=== PATIENT | female | born 1995 | race Caucasian/White ===

== ENCOUNTER 2016-12-31 10:00 | Emergency (ER) | payer MEDICAID ==
[2016-12-31 10:01] VITALS: BMI 29.0
[2016-12-31] MEDS ORDERED: Sodium Chloride 0.9% 1,000 ML IV ONE (10:55)
[2016-12-31] MEDS ORDERED: Sodium Chloride 0.9% 1,000 ML ONE ×2 (11:06→12:09)
[2016-12-31 11:45] LABS: RBC URINE 2 /hpf (0-3); URINE BACTERIA RARE (<OCC); URINE BILIRUBIN NEGATIVE (NEGATIVE); URINE BLOOD NEGATIVE (NEGATIVE); URINE COLOR Yellow (YELLOW); URINE GLUCOSE (UA) NORMAL (Normal); URINE KETONE NEGATIVE (NEGATIVE); URINE LEUKOCYTE ESTERASE 2+ Leu/uL (Negative); URINE PROTEIN NEGATIVE (NEGATIVE); URINE UROBILINOGEN NORMAL mg/dL (0.2-1.0); WBC URINE 13 /hpf (0-5)
--- NOTE | 2016-12-31 12:07 | C.PDOC ---
History Of Present Illness 21 year old female, with estimated twin gestational age of 10 weeks, presents to the ED for evaluation of lower abdominal and pelvic pressure which began around 1 week ago. Patient states her symptoms are intermittent and radiate towards her back. Patient reports feeling like something was "pushing" when she last used the bathroom. Patient denies nausea, vomiting, vaginal bleeding, dysuria. Patient is P1; Patient had a miscarriage in March 2016 at gestational age of 22 weeks. Patient's last menstrual period was 10/21 RAILROAD COMMISSIONER: Dr. Babcock Time Seen by Provider: 12/31/16 10:35 Chief Complaint (Nursing): Abdominal Pain History Per: Patient History/Exam Limitations: no limitations Onset/Duration Of Symptoms: Days (1 week), Intermittent Episodes Current Symptoms Are (Timing): Still Present Location Of Pain/Discomfort: Other (lower abdominal ) Radiation Of Pain To:: Back Quality Of Discomfort: "Pain" Associated Symptoms: denies: Fever, Chills, Nausea, Vomiting Additional History Per: Patient Abnormal Vaginal Bleeding: No Past Medical History Reviewed: Historical Data, Nursing Documentation, Vital Signs Vital Signs: Last Vital Signs Temp 98.4 F 12/31/16 13:29 Pulse 74 12/31/16 13:29 Resp 16 12/31/16 13:29 BP 124/74 12/31/16 13:29 Pulse Ox 99 12/31/16 18:51 - Medical History PMH: No Chronic Diseases Surgical History: No Surg Hx - [facility] Procedures OF POC, ABORTIFACIENT, VIA OPENING (03/26/16) Family History: States: Unknown Family Hx - Social History Hx Alcohol Use: No Hx Substance Use: No - Immunization History Hx Tetanus Toxoid Vaccination: No Hx Influenza Vaccination: No Hx Pneumococcal Vaccination: No Review Of Systems Constitutional: Negative for: Fever, Chills Gastrointestinal: Positive for: Abdominal Pain (lower abdomen ). Negative for: Nausea, Vomiting Genitourinary: Negative for: Dysuria, Vaginal Bleeding Musculoskeletal: Positive for: Back Pain Physical Exam - Physical Exam Appears: Non-toxic, No Acute Distress Skin: Normal Color, Warm, Dry Eye(s): bilateral: Normal Inspection Oral Mucosa: Moist Neck: Supple Chest: Symmetrical, No Deformity Cardiovascular: Rhythm Regular, No Murmur Respiratory: Normal Breath Sounds, No Rales, No Rhonchi, No Wheezing Gastrointestinal/Abdominal: Tenderness (suprapubic ), No Guarding, No Rebound Back: Normal Inspection, No Vertebral Tenderness, No Paraspinal Tenderness Extremity: Normal ROM, Capillary Refill (less than 2 seconds ) Neurological/Psych: Oriented x3, Normal Speech, Normal Cognition ED Course And Treatment - Laboratory Results Result Diagrams: 12/31/16 12:23 12/31/16 12:23 O2 Sat by Pulse Oximetry: 99 (on RA) Pulse Ox Interpretation: Normal - CT Scan/US Obstetrics US Other Rad Studies (CT/US): Interpreted By Me, Read By Radiologist, Radiology Report Reviewed CT/US Interpretation: Indication: pelvic pain, preg with twins 10 wk. Comparison: Pelvic ultrasound performed 09/15/15. Technique: Both transabdominal and endovaginal imaging was performed. Findings: This is a twin gestation. Fetus A: The gestational sac measures 7.3 cm. The crown-rump length measures 4.9 cm, and is compatible with a gestational age of 11 weeks 5 days. There is heart motion which measured 146.3 BPM. Fetus B: The gestational sac measures 7.3cm. The crown-rump length measures 4.4 cm, and is compatible with a gestational age of 11 weeks 1 day. There is heart motion which measured 158.8 BPM. The right ovary measures 4.7 x 3.8 x 3.6 cm and contains 2.0 x 1.6 x 2.5 cm cyst. Blood flow is demonstrated to the right ovary. The left ovary is not visualized. Cervix length measures approximately 4 cm. Impression: Twin gestation. Fetus A: The crown-rump length measures 4.9 cm, and is compatible with a gestational age of 11 weeks 5 days. There is heart motion which measured 146.3 BPM. Fetus B: . The crown-rump length measures 4.4 cm, and is compatible with a gestational age of 11 weeks 1 day. There is heart motion which measured 158.8 BPM. Advise an anomaly screen at 16-18 weeks gestational age. 2.5 cm right ovarian cyst. The left ovary is not visualized. Medical Decision Making Medical Decision Making: Impression: 21 year old female with lower abdominal pain Plan: * labs * Transvaginal US * Tylenol PO * IV Fluids * reassess and disposition Progress: labs and US ordered and reviewed. Patient received Tylenol PO and IV Fluids. On reassessment, patient is resting comfortably, showing no signs of distress and is stable for discharge. Will treat for UTI. Patient is advised to follow up with her RAILROAD COMMISSIONER within 1-2 days for further evaluation. Disposition Counseled Patient/Family Regarding: Diagnosis, Need For Followup - Disposition Referrals: Raz Babcock MD [Staff Provider] - Disposition: HOME/ ROUTINE Disposition Time: 13:08 Condition: GOOD Additional Instructions: Es importante que usted siga con ob / dried yeast supervisor Dr Babcock en pocos mack [place] el antibitico dos veces al da para la infeccin de la orina Prescriptions: Nitrofurantoin Macrocrystals [Macrobid] 1 cap PO BID #14 cap Instructions: Threatened Miscarriage (ED), Urinary Tract Infection in (ED) Forms: [employer] (Swazi) Print Language: BELGIAN - POA Present On Arrival: None - Clinical Impression Clinical Impression: UTI in , Threatened miscarriage - PA / KENNEL ATTENDANT / Resident Statement MD/DO has reviewed & agrees with the documentation as recorded. - Scribe Statement The provider has reviewed the documentation as recorded by the Scribe (Kaelyn Iglesias) All medical record entries made by the Scribe were at my direction and personally dictated by me. I have reviewed the chart and agree that the record accurately reflects my personal performance of the history, physical exam, medical decision making, and the department course for this patient. I have also personally directed, reviewed, and agree with the discharge instructions and disposition.
[2016-12-31 12:28] LABS: BASO % 0.3 % (0.0-2.0); EOS % 0.7 % (0.0-4.0); HEMATOCRIT 33.7 % (34.0-47.0); LYMPH # 1.6 K/uL (1.0-4.3); LYMPH % 23.8 % (20.0-40.0); MEAN CELL VOLUME 87.6 fL (81.0-99.0); MEAN CORPUSCULAR HEMOGLOBIN 30.6 pg (27.0-31.0); MEAN PLATELET VOLUME 9.3 fL (7.2-11.7); MONO % 5.9 % (0.0-10.0); RED CELL DISTRIBUTION WIDTH 12.2 % (11.5-14.5); WHITE BLOOD COUNT 6.6 K/uL (4.8-10.8)
[2016-12-31 12:29] LABS: MONO # 0.4 K/uL (0.0-0.8)
[2016-12-31 12:41] LABS: CHLORIDE 102 mmol/L (98-107); SODIUM 137 mmol/L (132-148)
[2016-12-31 12:42] LABS: POTASSIUM 3.9 mmol/L (3.6-5.2)
[2016-12-31 12:44] LABS: ALB/GLOB RATIO 1.2 (1.0-2.1); ALKALINE PHOSPHATASE 62 U/L (38-126); AST/SGOT 25 U/L (14-36); BILIRUBIN,TOTAL 0.3 mg/dL (0.2-1.3); BLOOD UREA NITROGEN 3 mg/dL (7-17); CARBON DIOXIDE 22 mmol/L (22-30); GFR AFRICAN-AMERICAN > 60; GLUCOSE,RANDOM 67 mg/dL (65-105); TOTAL PROTEIN 6.8 g/dL (6.3-8.3)
[2016-12-31 12:45] LABS: ALT/SGPT 45 U/L (9-52); CALCIUM 9.4 mg/dl (8.6-10.4)
--- NOTE | 2016-12-31 12:47 | US ---
Indication: pelvic pain, preg with twins 10 wk Comparison: Pelvic ultrasound performed 09/15/15 Technique: Both transabdominal and endovaginal imaging was performed. Findings: This is a twin gestation. Fetus A: The gestational sac measures 7.3 cm. The crown-rump length measures 4.9 cm, and is compatible with a gestational age of 11 weeks 5 days. There is heart motion which measured 146.3 BPM. Fetus B: The gestational sac measures 7.3cm. The crown-rump length measures 4.4 cm, and is compatible with a gestational age of 11 weeks 1 day. There is heart motion which measured 158.8 BPM. The right ovary measures 4.7 x 3.8 x 3.6 cm and contains 2.0 x 1.6 x 2.5 cm cyst. Blood flow is demonstrated to the right ovary. The left ovary is not visualized. Cervix length measures approximately 4 cm. Impression: Twin gestation. Fetus A: The crown-rump length measures 4.9 cm, and is compatible with a gestational age of 11 weeks 5 days. There is heart motion which measured 146.3 BPM. Fetus B: . The crown-rump length measures 4.4 cm, and is compatible with a gestational age of 11 weeks 1 day. There is heart motion which measured 158.8 BPM. Advise an anomaly screen at 16-18 weeks gestational age. 2.5 cm right ovarian cyst. The left ovary is not visualized.
[2016-12-31 13:32] VITALS: BP 124/74; PULSE 74; RESP 16; TEMP 98.4
[2016-12-31 18:41] VITALS: O2SAT 99
== END 2016-12-31 13:33 | disposition home or self-care (01) ==
LOC: C.ER 10:00
DX: O20.0 Threatened abortion (principal); O23.41 Unspecified infection of urinary tract in pregnancy, first trimester; Z3A.11 11 weeks gestation of pregnancy
CPT/HCPCS: 76801; 80053; 81001; 84702; 84703; 85025; 96360; 99284; J7040

== ENCOUNTER 2018-05-25 11:40 | Emergency (ER) | payer OTHER ==
[2018-05-25] MEDS ORDERED: Lactated Ringer's 1,000 ML IV ONE (13:23)
[2018-05-25 13:26] LABS: SQUAMOUS EPITHIAL 2 /hpf (0-5); URINE BACTERIA RARE (<OCC); URINE BILIRUBIN NEGATIVE (NEGATIVE); URINE BLOOD NEGATIVE (NEGATIVE); URINE CLARITY Hazy (Clear); URINE COLOR Straw (YELLOW); URINE GLUCOSE (UA) NORMAL (Normal); URINE LEUKOCYTE ESTERASE NEG Leu/uL (Negative); URINE PROTEIN NEGATIVE (NEGATIVE); URINE UROBILINOGEN NORMAL mg/dL (0.2-1.0)
[2018-05-25 13:44] LABS: BASO % 0.3 % (0.0-2.0); EOS % 0.8 % (0.0-4.0); HEMOGLOBIN 11.1 g/dL (11.0-16.0); LYMPH # 1.4 K/uL (1.0-4.3); LYMPH % 23.1 % (20.0-40.0); MEAN CORPUSCULAR HEMOGLOBIN 29.6 pg (27.0-31.0); MEAN CORPUSCULAR HGB CONC 33.1 g/dL (33.0-37.0); MEAN PLATELET VOLUME 10.4 fL (7.2-11.7); MONO # 0.4 K/uL (0.0-0.8); MONO % 6.5 % (0.0-10.0); NEUT # 4.2 K/uL (1.8-7.0); NEUT % 69.3 % (50.0-75.0); RBC 3.76 Mil/uL (3.80-5.20); RED CELL DISTRIBUTION WIDTH 14.3 % (11.5-14.5)
[2018-05-25 13:47] LABS: MEAN CELL VOLUME 89.3 fL (81.0-99.0)
[2018-05-25 13:59] LABS: ALB/GLOB RATIO 1.1 (1.0-2.1); ALBUMIN 3.6 g/dL (3.5-5.0); ALT/SGPT 12 U/L (9-52); AST/SGOT 20 U/L (14-36); BLOOD UREA NITROGEN 4 mg/dL (7-17); CALCIUM 8.9 mg/dl (8.6-10.4); GFR NON-AFRICAN AMERICAN > 60
--- NOTE | 2018-05-25 14:30 | OBHP ---
Datetime: 05/25/2018 12:31 IP Adm Impression: , intrauterine ; No Active Labor; Intact Membranes IP Chief Complaint Other: internal vaginal pressure 2/2 cramping IP Admit Plan: Observation/Evaluation Admit Comment, IP Provider: Subjective: Patient is a 22 year old female at 30 weeks and 5 days gestation presenting with complaint s of intermittent lower abdominal pain. Patient reports suprapubic cramping associated with internal vaginal pressure. She currently rates that pain at a 6-8/10. She reports an isolated episode of liqui d dripping down her thigh after using the bathroom last night. She states that she has continued to f eel movement. Patient denies vaginal bleeding or discharge, gush of fluid, dysuria. Patient den ies blurry vision, shortness of breath, chest pain, nausea, vomiting, diarrhea, constipation. OBGYN Hx: ; 1st term vaginal 2007, 2nd term vaginal 2014, Stillbirth at 23 weeks 2016, Twins (for tachycardia) at 34 weeks 2018. [facility]age [facility] twins . [facility]. Social Hx: Denies tobacco, alcohol, illicit drug use. Medical Hx: Anemia of (2018) Allergies: NKA Surgical Hx: (2017) Hospitilizations: Denies except for OBstetrics Family Hx: DM in mother. Medications: PNV, Ferrous Sulfate, Vitamin C Objective: VS- Reviewed PE- please see physical exam comments. NST reactive but mild tachycardia No uterine contractions recorded or palpated Assessment: 1. 22 y.o F at 30 weeks 5 days gestation 2. r/o UTI / R/O Dehydration 3. r/o labor 4. r/o rupture of membranes 5. Tachycardia 6. Hx of Anemia Plan: - UA Sent as well as CBC, CMP - Not in labor, continue monitoring with CEFM and TOCO - Ruled out rupture of membranes - Negative nitrazine - Start patient on IV fluids - CMP - CBC Patient seen and case dicussed with Dr. Robel Ascencio DO PGY-1 Perryvaleria Mandel OMSIII Pt seen and examined with Dr. Ascencio and Med Student Mr. Mandel and agreed with their findigs and PO C. Pelvic Type - PN: Adequate Extremities - PN: Normal Abdomen - PN: Normal Back - PN: Not Done Breast - PN: Not Done Lungs - PN: Normal Heart - PN: Normal Thyroid - PN: Not Done Neurologic - PN: Not Done HEENT - PN: Normal General - PN: Normal FHR - Baseline A Provider: 150 Membranes, Provider: Intact Contraction Comments Provider: None Comments, ACOG Physical Exam: General: non-toxic, no acute distress HEENT: normocephalic, atraumatic Cardio: Regular rate rhythm, +s1, +s2 Pulm: clear to ausculation b/l, no accessory respiratory muscle use Gastro: non-distended, soft, suprapubic tenderness to palpation. Extremities: no edema. : No rupture of membranes as per nitrazine swab, cervix closed, no blood visualized, no pooling of fluid in vaginal vault. Gestation - Est Wks by US: 30 wks 5 days Pool Provider: Negative (Annotations: Data stored by CPN on behalf of user) Nitrazine Provider: Negative IP Hx Assessment: The History has been Updated EGA AdmitDate IP: 30.5 Vital Signs Provider: Reviewed; Within Normal Limits IP Indication for Induction: Not Applicable IP Chief Complaint: Uterine contractions; Maternal discomfort NICHD Variability Prov Fetus A: Moderate 6-25bpm (Annotations: Data stored by CPN on behalf of user) NICHD Accel Fetus A IP Provider: [id number] FHR Category Provider Fetus A: Category I (Annotations: Data stored by CPN on behalf of user) NICHD Decel Fetus A IP Provider: None Dilatation, Provider: 0 Genitourinary Exam: Normal DTRs - PN: Not Done
--- NOTE | 2018-05-25 14:48 | OBDCSUM ---
Datetime: 05/25/2018 14:29 Discharged to, Provider: Home Follow up at, Provider: Clinic Disch Instr Activity: Normal activity Disch Instr Diet: Regular Discharge Instructions, Provider: Routine instructions given Discharge Time: 05/25/2018 14:29 Follow up in weeks, Provider: scheduled appointment Contraception discussed, Prov: No Disch Activity Restrictions: Minimize stair-climbing; No sexual activity; Nothing in vagina - Interc ourse, tampons, douche Discharge Comment, Provider: Subjective: Patient is a 22 year old female at 30 weeks and 5 days gestation presenting with complaint s of intermittent lower abdominal pain. Patient reports suprapubic cramping associated with internal vaginal pressure. She currently rates that pain at a 6-8/10. She reports an isolated episode of liqui d dripping down her thigh after using the bathroom last night. She states that she has continued to f eel movement. Patient denies vaginal bleeding or discharge, gush of fluid, dysuria. Patient den ies blurry vision, shortness of breath, chest pain, nausea, vomiting, diarrhea, constipation. OBGYN Hx: ; 1st term vaginal 2007, 2nd term vaginal 2014, Stillbirth at 23 weeks 2016, Twins (for tachycardia) at 34 weeks 2018. Cerclage during twins . Chlamdyia 09/2017 - patient and partner treated. Social Hx: Denies tobacco, alcohol, illicit drug use. Medical Hx: Anemia of (2018) Allergies: NKA Surgical Hx: (2017) Hospitilizations: Denies except for OBstetrics Family Hx: DM in mother. Medications: PNV, Ferrous Sulfate, Vitamin C Objective: VS- Reviewed PE- please see physical exam comments. NST reactive but mild tachycardia No uterine contractions recorded or palpated Assessment/Plan 1. 22 y.o F at 30 weeks 5 days gestation 2. Mild Dehydration 3. No labor 4. No rupture of membranes 5. Tachycardia that ressolved with IV hydration 6. Hx of Anemia, will continue Fe as outpatient H_H 05/25/2018 11.1, 33.6; stable from 04/27/2018 10.6, 32. Tylenol po given UA negative Stable and Satisfactory condition Will discharge home with instructions to increase po water intake, Continue PNV and Fe and Vit C, Patient seen and case dicussed with Dr. Robel Ascencio DO PGY-1 Perry PROCTOR Pt seen and examined with Dr. Ascencio and Med Student Mr. Mandel and agreed with their findigs and PO C. Discharge Diagnosis Prov Other: Dehydration Tachycardia Hx of Anemia
[2018-05-25 19:50] VITALS: BP 119/80; PULSE 96; RESP 20; TEMP 98.2; O2SAT 100
== END 2018-05-25 15:35 | disposition home or self-care (01) ==
LOC: C.EROB 11:40
DX: O26.893 Other specified pregnancy related conditions, third trimester (principal); E86.0 Dehydration; Z3A.30 30 weeks gestation of pregnancy
CPT/HCPCS: 80053; 81001; 85025; 99283; J7120

== ENCOUNTER 2018-06-23 08:43 | Outpatient (CLI) | payer OTHER | END 2018-06-23 08:44 | disposition home or self-care (01) | LOC: C.LAB 08:43 | DX: Z34.93 Encounter for supervision of normal pregnancy, unspecified, third trimester (principal) ==